=== PATIENT | male | born 1955 | race Hispanic/Latino ===

== ENCOUNTER 2018-04-21 07:30 | Day surgery (SDC) | payer BC ==
[2018-04-20 08:51] VITALS: BMI 22.8
[2018-04-21] MEDS ORDERED: Propofol 10 mg/ml Inj (20 ML) ONE (07:46)
[2018-04-21] MEDS ORDERED: Lidocaine PF 2% (5 ml) Inj (For Cardiac Arrhy) ONE (07:47)
[2018-04-21] MEDS ORDERED: Sodium Chloride 0.9% 1,000 ML IV SCH (09:15)
[2018-04-21 09:32] VITALS: PULSE 69
[2018-04-21 10:12] VITALS: BP 142/84; RESP 18; TEMP 98; O2SAT 99
== END 2018-04-21 10:14 | disposition home or self-care (01) ==
LOC: ENDO 07:30
PROVIDERS: ATTEND Specialist
DX: Z12.11 Encounter for screening for malignant neoplasm of colon (principal); K57.30 Diverticulosis of large intestine without perforation or abscess without bleeding; K64.8 Other hemorrhoids; I10 Essential (primary) hypertension